=== PATIENT | female | born 1990 | race Caucasian/White ===

== ENCOUNTER 2019-02-28 19:31 | Emergency (ER) | payer BC ==
[2019-02-28 20:04] LABS: #Basophils 0.1 thou/uL (0.0-0.2); #Eosinphils 0.1 thou/uL (0.0-0.7); #Lymphocytes 3.6 thou/uL (1.20-3.40); #Monocytes 0.6 thou/uL (0.11-0.59); #Neutrophils 4.7 thou/uL (1.40-6.50); %Basophils 0.6 % (0.0-1.0); %Eosinophils 1.1 % (0.0-10.0); %Lymphocytes 40.1 % (21.0-51.0); %Monocytes 6.9 % (0.0-10.0); %Neutrophils 51.3 % (42.0-75.0); Mean Corpuscular HGB CONC 32.5 g/dL (32.0-36.0); Mean Corpuscular Hemoglobin 29.8 pg (27.0-31.0); Mean Corpuscular Volume 91.6 fL (78.0-98.0); Mean Platelet Volume 7.9 fL (7.4-10.4); Platelet Count 255 thou/uL (130-400); RBC Distribution Width 11.4 % (11.5-14.5); Red Blood Cell (RBC) Count 4.36 mill/uL (4.20-5.40); White Blood Cell (WBC) Count 9.1 thou/uL (4.8-10.8)
[2019-02-28] MEDS ORDERED: Ondansetron PF 4 MG/2 ML Vial ONE (20:08)
[2019-02-28] MEDS ORDERED: Ketorolac Tromethamine 30 MG/ML VIAL ONE (20:08)
[2019-02-28 20:09] LABS: Bilirubin Negative (Negative); Blood, Urine Negative (Negative); Clarity Clear (Clear); Glucose, Urine (Dipstick) Negative (Negative); Leukocyte Negative (Negative); Nitrite Negative (Negative); Protein, Urine (Dipstick) Negative (Neg-Trace); Specific Gravity, Urine 1.015 (1.005-1.030); Urobilinogen 0.2 mg/dL (0.2-1.0); pH, Urine 8.5 (5.0-9.0)
[2019-02-28 20:12] LABS: Pregnancy Test - Urine (BHCG) Negative (Negative); Pregu Control Background? CLEAR/WHITE (CLR/WHITE); Pregu Control Bar Appear? YES (CONTROL BAR); Specific Gravity 1.015 (1.002-1.036)
[2019-02-28 20:14] LABS: ALT (SGPT) 18 U/L (8-55); AST (SGOT) 19 U/L (5-34); Albumin 4.5 g/dL (3.5-5.0); Alkaline Phosphatase 36 U/L (40-150); Anion Gap 15 mmol/L (10-20); BUN (Urea Nitrogen) 11 mg/dL (7.0-18.7); Bilirubin, Total 0.3 mg/dL (0.2-1.2); Calc. Creatinine Clearance 0 mL/min (70-130); Calcium 9.7 mg/dL (7.8-10.44); Carbon Dioxide 24 mmol/L (22-29); Chloride 106 mmol/L (98-107); Estimated GFR-MDRD Greater than 90; Globulin 2.9 g/dL (2.4-3.5); Glucose 85 mg/dL (70-105); Lipase 64 U/L (8-78); Potassium 3.7 mmol/L (3.5-5.1); Protein, Total 7.4 g/dL (6.0-8.3); Sodium 141 mmol/L (136-145)
--- NOTE | 2019-02-28 22:04 | CT ---
CT of abdomen and pelvis: 02/28/2019 COMPARISON: None HISTORY: Right lower quadrant pain with nausea TECHNIQUE: Axial CT imaging at 5 mm intervals from lung bases through pubic symphysis with IV and ora l contrast. Coronal reformatted imaging obtained. FINDINGS: The visualized lung bases are unremarkable. No free intraperitoneal air or fluid is seen. The liver, gallbladder, spleen, pancreas, adrenal glands, and kidneys are unremarkable. There is no evidence for bowel inflammatory change or bowel obstruction. The appendix is not discrete ly visualized but no right lower quadrant inflammatory change is seen to suggest the presence of acute appendicitis. No lymphadenopathy is noted within the abdomen or pelvis. The vascular structures of the abdomen and pelvis appear patent. No acute osseous abnormality. IMPRESSION: No right lower quadrant inflammatory change seen to suggest the presence of acute appendi citis.
[2019-03-03 09:27] LABS: Chlamydia by PCR Not Detected (NotDetected); GC by PCR Not Detected (NotDetected)
== END 2019-02-28 22:20 | disposition home or self-care (01) ==
LOC: SCSER 19:31
DX: R10.31 Right lower quadrant pain (principal)
CPT/HCPCS: 36415; 74177; 80053; 81003; 81025; 83690; 85025; 87480; 87491; 87510; 87591; 87660; 96374; 96375; J1885; J2270; J2405

== ENCOUNTER 2019-03-10 10:38 | Outpatient (CLI) | payer BC ==
--- NOTE | 2019-03-10 11:48 | ULT ---
LEFT BREAST ULTRASOUND: HISTORY: A 28-year-old female with palpable abnormality at the 1=3 o'clock positions of the left breast. FINDINGS: Sonographic evaluation of the left breast was performed at the region of palpable concern (1, 2, and 3 o'clock positions). No sonographic abnormality is seen. IMPRESSION: BIRADS category 2 - benign findings. Annual mammographic screening based on risk factors is recommen ded. Further evaluation (including biopsy) should be based on clinical findings/suspicion. POS: OFF
== END 2019-03-10 10:39 | disposition home or self-care (01) ==
LOC: BICULT 10:38
PROVIDERS: ATTEND Physician Assistant
DX: N63.20 Unspecified lump in the left breast, unspecified quadrant (principal)

== ENCOUNTER 2019-09-14 08:57 | Outpatient (CLI) | payer BC ==
[2019-09-14 18:08] LABS: Hemoglobin 13.6 g/dL (12.0-16.0); Mean Corpuscular HGB CONC 33.7 g/dL (32.0-36.0); Mean Corpuscular Hemoglobin 30.9 pg (27.0-31.0); Mean Corpuscular Volume 91.7 fL (78.0-98.0); Mean Platelet Volume 7.8 fL (7.4-10.4); Platelet Count 257 thou/uL (130-400); Red Blood Cell (RBC) Count 4.42 mill/uL (4.20-5.40); White Blood Cell (WBC) Count 8.4 thou/uL (4.8-10.8)
[2019-09-14 18:11] LABS: BHCG - Serum Negative (NEGATIVE); Pregs Control Background? CLEAR/WHITE (CLR/WHITE); Pregs Control Bar Appear? YES (CONTROL BAR)
== END 2019-09-14 08:58 | disposition home or self-care (01) ==
LOC: LABBT 08:57
PROVIDERS: ATTEND Obstetrics & Gynecology
DX: Z01.812 Encounter for preprocedural laboratory examination (principal); R10.2 Pelvic and perineal pain
CPT/HCPCS: 84703; 85027; 86850; 86900; 86901

== ENCOUNTER 2019-09-20 09:54 | Day surgery (SDC) | payer BC ==
[2019-09-14 16:52] VITALS: BMI 28.8
[2019-09-20] MEDS ORDERED: Ondansetron PF 4 MG/2 ML Vial ONE (10:29)
[2019-09-20] MEDS ORDERED: PROPOFOL 200 MG/20 ML VIAL ONE (10:29)
[2019-09-20] MEDS ORDERED: Glycopyrrolate 0.2 MG/ML 5 ML SYRINGE ONE (10:29)
[2019-09-20] MEDS ORDERED: Rocuronium Bromide 10 MG/ML (10ML VIAL) ONE (10:29)
[2019-09-20] MEDS ORDERED: Dexamethasone 20 MG/5 ML VIAL ONE (10:29)
[2019-09-20] MEDS ORDERED: Gabapentin 300 MG CAP ONE (11:02)
[2019-09-20] MEDS ORDERED: Famotidine/PF 20 mg/2ml Vial ONE (11:02)
[2019-09-20] MEDS ORDERED: Midazolam HCl 2 mg/2 ml Vial ONE ×2 (11:34→12:07)
[2019-09-20] MEDS ORDERED: Fentanyl 100 MCG/2 ML VIAL ONE ×3 (11:34→13:53)
[2019-09-20] MEDS ORDERED: Bupivacaine HCl 0.5%/Epinephrine 1:200,000/PF 30 ml Vial ONE (11:47)
[2019-09-20] MEDS ORDERED: Morphine 2 MG/ML SYRINGE ONE (15:05)
[2019-09-20] MEDS ORDERED: Promethazine HCl 25 MG/ML VIAL ONE (15:28)
[2019-09-20] MEDS ORDERED: Sodium Chloride 0.9% 10 ML ONE (15:28)
--- NOTE | 2019-09-21 09:49 | OP ---
DATE OF PROCEDURE: 09/20/2019 PREOPERATIVE DIAGNOSIS: Chronic pelvic pain. POSTOPERATIVE DIAGNOSIS: Chronic pelvic pain. PROCEDURES PERFORMED: 1. Diagnostic laparoscopy. 2. Peritoneal biopsy. 3. Fulguration of presumed endometriosis. ASSIST: Ayleen Green PA-C COMPLICATIONS: None. ANESTHESIA: General. ESTIMATED BLOOD LOSS: Minimal. INDICATIONS FOR THE PROCEDURE: Ms. Bailey Jain is a 29-year-old female with a history of chronic pelvic pain including worsening dysmenorrhea and dyspareunia. The patient undergone a GI evaluation with a normal colonoscopy. She was counseled on options. She has been on continuous control pills and desired a diagnostic laparoscopy to further evaluate her chronic pelvic pain as that was thought she may have endometriosis. FINDINGS: Normal external genitalia. Normal vaginal and cervical epithelium. Uterus approximately 8 cm in length. Normal-appearing fallopian tubes and ovaries bilaterally. Small areas along the posterior cul-de-sac and near the most proximal portion of the uterosacral ligaments. There were some small white and clear appearing lesions that may be consistent with endometriosis along the peritoneal edge. The ureteral course was identified transperitoneally. DESCRIPTION OF PROCEDURE: The patient was brought to the operating room, she was placed under general anesthesia. The patient was placed in dorsal lithotomy position using Gabriele stirrups. She was prepped and draped in a sterile fashion. An official time-out was performed. An umbilical incision was made using the scalpel. The Veress needle was inserted, noting a normal abdominal pressure. The 5 mm trocar was inserted at this site. The patient was placed in Trendelenburg position. Pelvis was evaluated, noting the findings above. Two additional ports were placed, one on the right and one on the left aspect of the abdomen. The peritoneum on the posterior cul-de-sac that was superior to the area of the rectum and just medial to the uterosacral ligament was biopsied by tenting the peritoneum, creating a pneumoperitoneum and removing this tissue. Approximately 1 cm area was removed containing the majority of the small areas were thought to be possible early endometriosis. The area was hemostatic. There was one small area along the left uterosacral ligament that was fulgurated as it was likely possible endometriosis as well. The biopsy was then removed and sent to Pathology. The instruments were removed. The patient was taken out of Trendelenburg position. The abdomen was deflated and trocars removed. The skin was closed using 0 Monocryl and Dermabond. The uterine manipulator was removed and the tenaculum sites were hemostatic. All counts were correct x2. Job ID: [id number]
== END 2019-09-20 16:35 | disposition home or self-care (01) ==
LOC: SDC 09:54
PROVIDERS: ATTEND Obstetrics & Gynecology
PROC: 0WBH4ZX Excision of Retroperitoneum, Percutaneous Endoscopic Approach, Diagnostic (ICD-10-PCS; principal; 2019-09-20)
DX: R10.2 Pelvic and perineal pain (principal); G89.29 Other chronic pain; E78.00 Pure hypercholesterolemia, unspecified; K58.9 Irritable bowel syndrome, unspecified; Z79.899 Other long term (current) drug therapy; Z88.8 Allergy status to other drugs, medicaments and biological substances
CPT/HCPCS: 88305; J0131; J0670; J1100; J2250; J2270; J2405; J2550; J2704; J3010; S0028